=== PATIENT | male | born 1990 | race Two or more races ===

== ENCOUNTER 2021-03-10 20:19 | Emergency (ER) | payer MEDICAID, OTHER ==
[~2021-03-10] VITALS: Ht 175.3 cm; Wt 65.8 kg
--- NOTE | 2021-03-10 20:45 | NUR ---
PT BIBS C/O L FLANK PAIN X1.5 YEARS. PT AAOX4 BREATHING EVENLY AND UNLABORED. PER PT, HE HAS BEEN "MONITORING MY PAIN AND IT GOT WORSE TODAY". PT ATTACHED TO MONITOR AND POX. MD AT BEDSIDE. PT GIVEN BLANKET AND CALL LIGHT WITHIN REACH
[2021-03-10] MEDS ORDERED: ONDANSETRON HCL/PF 4 MG/2 ML VIAL ONE (20:48)
[2021-03-10] MEDS ORDERED: KETOROLAC TROMETHAMINE INJ 30 MG/ML VIAL ONE (20:48)
[2021-03-10] MEDS ORDERED: IV NS 0.9% 1,000 ML BAG IV ONE (21:00)
[2021-03-10] MEDS ORDERED: KETOROLAC TROMETHAMINE INJ 30 MG/ML VIAL IV ONE (21:00)
[2021-03-10] MEDS ORDERED: ONDANSETRON HCL/PF 4 MG/2 ML VIAL IVP ONE (21:00)
--- NOTE | 2021-03-10 21:00 | NUR ---
BLOOD SENT TO LAB
--- NOTE | 2021-03-10 21:03 | NUR ---
TAKEN TO RADIOLOGY
[2021-03-10 21:04] LABS: BASOPHILS % (AUTO) 0.5 % (0.0-2.0); EOSINOPHILS % (AUTO) 1.2 % (0.0-6.0); HEMATOCRIT 45 % (39-51); LYMPHOCYTES # (AUTO) 2.6 K/uL (0.8-4.8); LYMPHOCYTES % (AUTO) 36.1 % (20.0-44.0); MEAN CORPUSCULAR HGB CONC 33 g/dl (31.0-36.0); MEAN CORPUSCULAR VOLUME 95 fL (80-96); MONOCYTES # (AUTO) 0.7 K/uL (0.1-1.30); MONOCYTES % (AUTO) 9.7 % (2.0-12.0); NEUTROPHILS # (AUTO) 3.8 K/uL (1.8-8.9); NEUTROPHILS % (AUTO) 52.5 % (43.0-81.0); PLATELET COUNT (AUTO) 219 K/uL (150-450); RED BLOOD CELL COUNT(AUTO) 4.78 MIL/uL (4.5-6.0); WHITE BLOOD COUNT (AUTO) 7.2 K/uL (4.3-11.0)
[2021-03-10 21:09] LABS: BILIRUBIN,URINE NEGATIVE (NEGATIVE); COLOR,URINE YELLOW (YELLOW); LEUKOCYTE ESTERASE ,URINE NEGATIVE (NEGATIVE); NITRITE, URINE NEGATIVE (NEGATIVE); PROTEIN,URINE NEGATIVE (NEGATIVE); UGLUCOSE NEGATIVE (NEGATIVE); UROBILINOGEN,URINE 0.2 EU/dL (0.2)
--- NOTE | 2021-03-10 21:11 | NUR ---
RETURNED FROM RADIOLOGY
[2021-03-10 21:24] LABS: ALBUMIN 4.3 g/dL (3.4-5.0); BILIRUBIN,DIRECT 0.1 mg/dL (0.0-0.2); BILIRUBIN,TOTAL 0.3 mg/dL (0.2-1.0); CALCIUM, SERUM 9.1 mg/dL (8.5-10.1); POTASSIUM 3.4 mmol/L (3.5-5.1); TOTAL PROTEIN, SERUM 8.2 g/dL (6.4-8.2)
[2021-03-10 21:37] LABS: BACTERIA,URINE None seen /HPF (None Seen); RBC,URINE 0-2 /HPF (0-2); SQUAMOUS EPITHELIAL CELL,UR 0-2 /HPF (None Seen); WBC,URINE 0-2 /HPF (0-3)
--- NOTE | 2021-03-10 22:00 | NUR ---
Patient discharged to home in stable condition. Written and verbal after care instructions given. Patient verbalizes understanding of instruction. IV removed. Catheter intact and site benign. Pressure and 4x4 applied to site. No bleeding noted. Pt ambulatory with a steady gait
[2021-03-10 22:07] VITALS: BP 140/80
== END 2021-03-10 22:00 | disposition home or self-care (01) ==
LOC: ER 20:26
DX: R10.32 Left lower quadrant pain (principal); G89.29 Other chronic pain; E86.0 Dehydration; F17.200 Nicotine dependence, unspecified, uncomplicated
CPT/HCPCS: 36415; 74176; 80048; 80076; 81001; 85025; 96360; 99284; J7030; J1885; J2405

== ENCOUNTER 2022-08-04 20:38 | Emergency (ER) | payer OTHER ==
[~2022-08-04] VITALS: Ht 175.3 cm; Wt 68.0 kg
--- NOTE | 2022-08-04 21:38 | NUR ---
BIBSELF FROM HOME C/O R SWELLING & PAIN FOR COUPLE WEEKS. PT A/OX4 TOELRATING R/A WELL WITH NO RESP DISTRESS.
--- NOTE | 2022-08-04 21:39 | NUR ---
URINE COLLECTED AND SENT TO LAB
[2022-08-04 22:44] LABS: BILIRUBIN,URINE NEGATIVE (NEGATIVE); COLOR,URINE YELLOW (YELLOW); LEUKOCYTE ESTERASE ,URINE NEGATIVE (NEGATIVE); NITRITE, URINE NEGATIVE (NEGATIVE); PH,URINE 6.5 (5.0-8.0); PROTEIN,URINE NEGATIVE (NEGATIVE); UGLUCOSE NEGATIVE (NEGATIVE); UROBILINOGEN,URINE 0.2 EU/dL (0.2)
[2022-08-04 22:54] LABS: BACTERIA,URINE None seen /HPF (None Seen); RBC,URINE 0-2 /HPF (0-2); SQUAMOUS EPITHELIAL CELL,UR 0-2 /HPF (None Seen); WBC,URINE 0-2 /HPF (0-3)
[2022-08-04] MEDS ORDERED: IBUP-1953 PO (23:23)
--- NOTE | 2022-08-04 23:38 | NUR ---
Patient discharged to home in stable condition. Written and verbal after care instructions given. Patient verbalizes understanding of instruction.
[2022-08-05 01:47] VITALS: BP 130/86
== END 2022-08-04 23:38 | disposition home or self-care (01) ==
LOC: ER 20:38
DX: N50.3 Cyst of epididymis (principal); F17.200 Nicotine dependence, unspecified, uncomplicated
CPT/HCPCS: 76870-TC; 81001; 87491; 87591